=== PATIENT | female | born 2000 | race Caucasian/White ===

== ENCOUNTER 2021-11-19 21:56 | Emergency (ER) | payer BC ==
[2021-11-20] MEDS ORDERED: Acetaminophen 500 MG TAB ONE (00:06)
== END 2021-11-20 01:12 | disposition home or self-care (01) ==
LOC: ERS 21:56
DX: S90.32XA Contusion of left foot, initial encounter (principal); W17.89XA Other fall from one level to another, initial encounter; Y93.56 Activity, jumping rope